=== PATIENT | female | born 1995 | race Caucasian/White ===

== ENCOUNTER 2017-04-17 19:20 | Emergency (ER) | payer BC, MEDICAID ==
--- NOTE | 2017-04-17 20:20 | EDM.PDOC ---
ED HPI GENERAL MEDICAL PROBLEM - General Chief Complaint: ENT Problem Stated Complaint: Earache Time Seen by Provider: 04/17/17 19:21 Source of Information: Reports: Patient, RN, RN Notes Reviewed History Limitations: Reports: No Limitations - History of Present Illness INITIAL COMMENTS - FREE TEXT/NARRATIVE: Patient presents to the emergency room at [facility] complaining of a right ear ache that has been occurring for the past 2-3 months. The patient has not had this checked out at all. The patient denies any other upper respiratory symptoms. The patient denies any global headache. The patient denies any ataxia or balance problems. The patient denies any nausea or vomiting. No close family members or contacts with similar symptoms. Onset: Gradual Duration: Waxing/Waning - Related Data Allergies Allergy/AdvReac Type Severity Reaction Status Date / Time No Known Drug Allergies Allergy Other Verified 07/16/14 21:50 Home Meds: Home Meds medroxyPROGESTERone [Depo-Provera Contraceptive] 07/13/14 [History] Amoxicillin 875 mg PO BID #20 tab 04/17/17 [Rx] Past Medical History - Past Health History Medical/Surgical History: Denies Medical/Surgical History Social & Family History - Tobacco Use Years of Tobacco use: 4 - Alcohol Use Days Per Week of Alcohol Use: 0 - Recreational Drug Use Recreational Drug Use: No ED ROS ENT - Review of Systems Review Of Systems: See Below Constitutional: Denies: Fever, Chills, Weakness HEENT: Reports: Ear Pain (right) Respiratory: Denies: Shortness of Breath, Cough Cardiovascular: Denies: Chest Pain, Palpitations Skin: Reports: No Symptoms Neurological: Reports: No Symptoms ED EXAM, ENT - Physical Exam Exam: See Below Exam Limited By: No Limitations General Appearance: Alert, No Apparent Distress Eye Exam: Bilateral Eye: EOMI, Normal Inspection, PERRL Ears: Canal Swelling, TM Bulging, TM Fluid Nose: Normal Inspection, Normal Mucousa, Clear Rhinorrhea Mouth/Throat: Normal Inspection, Normal Oropharynx Neck: Supple Respiratory/Chest: No Respiratory Distress, Lungs Clear, Normal Breath Sounds Cardiovascular: Regular Rate, Rhythm Neurological: Alert, Oriented Skin: Warm, Dry, Intact, Normal Color, No Rash Departure - Departure Time of Disposition: 20:31 Disposition: Home, Self-Care 01 Condition: good Clinical Impression: Otitis media Qualifiers: Otitis media type: suppurative Laterality: right Chronicity: acute Recurrence: recurrent Spontaneous tympanic membrane rupture: without spontaneous rupture Qualified Code(s): H66.004 - Acute suppurative otitis media without spontaneous rupture of ear drum, recurrent, right ear - Discharge Information Prescriptions: Amoxicillin 875 mg PO BID #20 tab Instructions: Otitis Media, Adult, [id number] Forms: ED Department Discharge - Problem List Review Problem List Initiated/Reviewed/Updated: Yes
[2017-04-18 01:48] VITALS: BP 126/73
== END 2017-04-17 20:33 | disposition home or self-care (01) ==
LOC: VM.ED 19:20
DX: H66.004 Acute suppurative otitis media without spontaneous rupture of ear drum, recurrent, right ear (principal); Z79.899 Other long term (current) drug therapy
CPT/HCPCS: 99282

== ENCOUNTER 2017-05-14 22:49 | Emergency (ER) | payer MEDICAID ==
[2017-05-14 22:59] VITALS: BP 122/73
--- NOTE | 2017-05-14 23:07 | EDM.PDOC ---
ED HPI GENERAL MEDICAL PROBLEM - General Chief Complaint: ENT Problem Stated Complaint: right ear pain Time Seen by Provider: 05/14/17 22:55 Source of Information: Reports: Patient, RN History Limitations: Reports: No Limitations - History of Present Illness INITIAL COMMENTS - FREE TEXT/NARRATIVE: Patient presents to the ED at [facility] complaining of right ear pain that started yesterday. Patient denies any URI symptoms. No recent swimming. No ear trauma or injury. No hearing problems. Patient has not tried any OTC medications. No other complaints. Onset Date: 05/13/17 Duration: Constant Quality: Reports: Throbbing Severity: Moderate - Related Data Allergies Allergy/AdvReac Type Severity Reaction Status Date / Time No Known Drug Allergies Allergy Other Verified 04/18/17 01:48 Home Meds: Home Meds Ciprofloxacin/Dexamethasone [Ciprodex Otic Susp] 3 drop EARRT TID #1 bottle [Rx] Past Medical History - Past Health History Medical/Surgical History: Denies Medical/Surgical History Social & Family History - Tobacco Use Years of Tobacco use: 4 - Alcohol Use Days Per Week of Alcohol Use: 0 - Recreational Drug Use Recreational Drug Use: No ED ROS ENT - Review of Systems Review Of Systems: See Below Constitutional: Denies: Fever, Chills, Weakness HEENT: Reports: Ear Pain. Denies: Eye Discharge, Rhinitis, Sinus Problem, Throat Pain Respiratory: Denies: Shortness of Breath, Cough Cardiovascular: Denies: Chest Pain, Palpitations Skin: Reports: No Symptoms Neurological: Reports: Headache. Denies: Dizziness ED EXAM, ENT - Physical Exam Exam: See Below Exam Limited By: No Limitations General Appearance: Alert, No Apparent Distress Eye Exam: Bilateral Eye: EOMI, Normal Inspection, PERRL Ears: Canal Material, Canal Swelling. No: Normal TMs (Bilateral), Canal Foreign Body Nose: Normal Inspection, Normal Mucousa Mouth/Throat: Normal Inspection, Normal Oropharynx Neck: Supple Respiratory/Chest: No Respiratory Distress, Lungs Clear, Normal Breath Sounds Cardiovascular: Regular Rate, Rhythm Neurological: Alert, Oriented Skin: Warm, Dry, Intact, Normal Color, No Rash Course - Vital Signs Last Recorded V/S: Last Vital Signs Temp 36.4 C 05/14/17 22:57 Pulse 104 H 05/14/17 22:57 Resp 18 06/27/17 22:57 BP 122/73 05/14/17 22:57 Pulse Ox 96 05/14/17 22:57 Departure - Departure Time of Disposition: 23:03 Disposition: Home, Self-Care 01 Condition: Good Clinical Impression: Otitis externa Qualifiers: Otitis externa type: diffuse Chronicity: acute Laterality: right Qualified Code (s): H60.311 - Diffuse otitis externa, right ear - Discharge Information Prescriptions: Ciprofloxacin/Dexamethasone [Ciprodex Otic Susp] 3 drop EARRT TID #1 bottle Instructions: Otitis Externa Forms: ED Department Discharge Additional Instructions: 1. Stay well hydrated and rest 2. Use drops for the full coarse, even if you are feeling better 3. Do not use any Q-tips or other foreign objects in either ear 4. May alternate Tylenol/Advil as needed for pain 5. Avoid getting any water, soap, etc., in either ear 6. See your Primary as symptoms warrant, you may need further testing - Problem List Review Problem List Initiated/Reviewed/Updated: Yes
== END 2017-05-14 23:16 | disposition home or self-care (01) ==
LOC: VM.ED 22:49
DX: H60.311 Diffuse otitis externa, right ear (principal)
CPT/HCPCS: 99282

== ENCOUNTER 2018-02-01 14:42 | Emergency (ER) | payer MEDICAID ==
--- NOTE | 2018-02-01 15:07 | EDM.PDOC ---
ED HPI GENERAL MEDICAL PROBLEM - General Chief Complaint: General Stated Complaint: LUMP IN RIGHT BREAST Time Seen by Provider: 02/01/18 14:43 Source of Information: Reports: Patient, Family, RN, RN Notes Reviewed History Limitations: Reports: No Limitations - History of Present Illness INITIAL COMMENTS - FREE TEXT/NARRATIVE: Patient presents the emergency room at [facility] complaining of a long in her right breast. The patient states that she noticed a lump about a week ago the patient states that the lump has progressively gotten more painful over the last week. The patient is concerned because a paternal grandmother was recently diagnosed with breast cancer. The patient denies any skin changes. No dimpling. The patient denies any nipple discharge. The patient denies any skin integrity issues. The patient has not had any fevers or chills. No back pain. The patient has never been nor has had delivered any children. Onset Date: 01/25/18 Duration: Getting Worse, Waxing/Waning Right Breast Pain Score (Numeric/FACES): 6 - Related Data Allergies Allergy/AdvReac Type Severity Reaction Status Date / Time No Known Drug Allergies Allergy Other Verified 04/18/17 01:48 Home Meds: Home Meds Ciprofloxacin/Dexamethasone [Ciprodex Otic Susp] 3 drop EARRT TID #1 bottle [Rx] Past Medical History - Past Health History Medical/Surgical History: Denies Medical/Surgical History Social & Family History - Tobacco Use Smoking Status *Q: Unknown Ever Smoked Years of Tobacco use: 4 - Alcohol Use Days Per Week of Alcohol Use: 0 - Recreational Drug Use Recreational Drug Use: No ED ROS GENERAL - Review of Systems Review Of Systems: See Below Constitutional: Denies: Fever, Chills, Weakness Respiratory: Denies: Shortness of Breath, Cough Cardiovascular: Denies: Chest Pain, Palpitations GI/Abdominal: Denies: Abdominal Pain, Nausea, Vomiting Skin: Reports: Lumps (Right Lateral breast) Neurological: Reports: No Symptoms ED EXAM, GENERAL - Physical Exam Exam: See Below Exam Limited By: No Limitations General Appearance: Alert, No Apparent Distress Respiratory/Chest: No Respiratory Distress, Lungs Clear, Normal Breath Sounds Cardiovascular: Normal Peripheral Pulses, Regular Rate, Rhythm GI/Abdominal: Normal Bowel Sounds, Soft, Non-Tender Skin Exam: Other (freely mobile not well demarcated irregular lump, right lateral breast; tender to palpation; skin intact, no retract, no nipple discharge; no evidence of infection) Course - Vital Signs Last Recorded V/S: Last Vital Signs Temp 36.6 C 02/01/18 14:45 Pulse 90 02/01/18 14:45 Resp 12 02/01/18 14:45 BP 136/79 02/01/18 14:45 Pulse Ox 97 02/01/18 14:45 Departure - Departure Time of Disposition: 15:09 Disposition: Home, Self-Care 01 Condition: Good Clinical Impression: Breast mass in female, Fibrocystic changes of right breast - Discharge Information Instructions: Fibrocystic Breast Changes Referrals: Caren Jiang MD [Physician] - Additional Instructions: 1. Stay well hydrated and rest 2. May use a heating pad to the area to help with discomfort 3. May alternate Tylenol/Advil as needed 4. Make an appointment with Dr. Caren Jiang at [facility] for a follow up 5. Call us with any questions, we care about your health! - Assessment/Plan Assessment:: Right Breast Mass Plan: Lalitha Andrews RN budget specialist and present during female breast exam. No suspicious findings on exam. Right lateral breast mass is tender; extends up toward the right axilla. Patient needs ultrasound vs Mammo for further assessment. Discussed with patient she needs to establish care with a PCP for further investigation of her symptoms. Patient agrees with POC. May use a heating pad and PRN Tylenol/Advil.
== END 2018-02-01 15:17 | disposition home or self-care (01) ==
LOC: VM.ED 14:42
DX: N60.11 Diffuse cystic mastopathy of right breast (principal)
CPT/HCPCS: 99282

== ENCOUNTER 2019-02-12 08:26 | Emergency (ER) | payer SELFPAY ==
--- NOTE | 2019-02-13 10:07 | EDM.PDOC ---
ED HPI GENERAL MEDICAL PROBLEM - General Chief Complaint: ENT Problem Stated Complaint: EAR PAIN Time Seen by Provider: 02/12/19 08:35 Source of Information: Reports: Patient History Limitations: Reports: No Limitations - History of Present Illness INITIAL COMMENTS - FREE TEXT/NARRATIVE: Pt. complains of pain to R ear and R sided dental pain. She states that she is scheduled to seen dental tomorrow. Denies any fever or chills. No chest pain or shortness of breath. No issues with swallowing or managing her secretions. Pt. states that she has been experiencing the discomfort for several days. She has a history of dental problems and is had a tooth that had broken off near the area of the pain. Location: Reports: Face Right Ear Pain Score (Numeric/FACES): 10 - Related Data Allergies Allergy/AdvReac Type Severity Reaction Status Date / Time No Known Drug Allergies Allergy Other Verified 02/12/19 08:38 Home Meds: Home Meds . [No Known Home Meds] 02/01/18 [History] Past Medical History - Past Health History Medical/Surgical History: Denies Medical/Surgical History Social & Family History - Tobacco Use Smoking Status *Q: Current Every Day Smoker Years of Tobacco use: 5 Packs/Tins Daily: 0.5 - Alcohol Use Days Per Week of Alcohol Use: 1 Number of Drinks Per Day: 3 Total Drinks Per Week: 3 - Recreational Drug Use Recreational Drug Use: No ED ROS GENERAL - Review of Systems Review Of Systems: See Below Constitutional: Reports: No Symptoms HEENT: Reports: Dental Pain Respiratory: Reports: No Symptoms Cardiovascular: Reports: No Symptoms GI/Abdominal: Reports: No Symptoms Skin: Reports: No Symptoms ED EXAM, GENERAL - Physical Exam Exam: See Below Exam Limited By: No Limitations General Appearance: Alert, WD/WN, No Apparent Distress Ears: Normal External Exam, Normal Canal, Hearing Grossly Normal, Normal TMs Ear Exam: Bilateral Ear: Auricle Normal, Canal Normal, TM normal Nose: Normal Inspection, Normal Mucosa, No Blood Throat/Mouth: Other (R lower premolar is fractured off at gumline. The tooth posterior to this appears to have a horizontal fracture through it.) Head: Atraumatic, Normocephalic Neck: Normal Inspection, Supple, Non-Tender, Full Range of Motion Respiratory/Chest: No Respiratory Distress, Lungs Clear, Normal Breath Sounds, No Accessory Muscle Use, Chest Non-Tender Cardiovascular: Normal Peripheral Pulses, Regular Rate, Rhythm, No Edema, No Gallop, No JVD, No Murmur, No Rub Course - Vital Signs Last Recorded V/S: Last Vital Signs Temp 36.9 C 02/12/19 08:26 Pulse 100 02/12/19 08:26 Resp 16 02/12/19 08:26 BP 126/70 02/12/19 08:26 Pulse Ox 98 02/12/19 08:26 Departure - Departure Time of Disposition: 09:00 Disposition: Home, Self-Care 01 Clinical Impression: Dental abscess - Discharge Information Instructions: Amoxicillin; Clavulanic Acid tablets, Naproxen and naproxen sodium oral immediate-release tablets, Probiotics Referrals: PCP,None [Primary Care Provider] - Forms: ED Department Discharge Additional Instructions: Augmentin 875mg twice daily for 10 days Naproxen 500mg twice daily as needed for pain Follow-up with dentist MARILEE. Make sure you finish all of the augmentin - Assessment/Plan Plan: Augmentin 875mg twice daily for 10 days Naproxen 500mg twice daily as needed for pain Follow-up with dentist MARILEE. Make sure you finish all of the augmentin
== END 2019-02-12 09:00 | disposition home or self-care (01) ==
LOC: VM.ED 08:26
DX: K04.7 Periapical abscess without sinus (principal); F17.210 Nicotine dependence, cigarettes, uncomplicated
CPT/HCPCS: 99282

== ENCOUNTER 2019-08-24 18:52 | Emergency (ER) | payer SELFPAY | END 2019-08-24 19:25 | disposition left against medical advice (07) | LOC: VM.ED 18:52 | DX: Z53.21 Procedure and treatment not carried out due to patient leaving prior to being seen by health care provider (principal) ==

== ENCOUNTER 2019-08-25 21:29 | Emergency (ER) | payer SELFPAY ==
--- NOTE | 2019-08-25 22:13 | EDM.PDOC ---
ED HPI GENERAL MEDICAL PROBLEM - General Chief Complaint: ENT Problem Stated Complaint: Dental and Jaw pain with swelling Time Seen by Provider: 08/25/19 22:00 Source of Information: Reports: Patient History Limitations: Reports: No Limitations - History of Present Illness INITIAL COMMENTS - FREE TEXT/NARRATIVE: 24-year-old white female presents to ER with ongoing dental abscess 2-3 days she says is getting worse in last 24 hours she could not see a dentist secondary to $ 200 co-pay she states it is a dull throbbing aching pain 10 out of 10 and constant although she is actually text messaging and playing on the phone all vital signs are normal. No acute distress She has no other complaints at this time been eating and drinking normal No fever no chills headache vision changes sinus pain or pressure no neck pain with movement no trouble eating or chewing or drinking fluids Duration: Day(s): Quality: Reports: Dull, Throbbing Worsens with: Reports: None Treatments COPY HOLDER: Reports: NSAIDS Right lower tooth, jaw Pain Score (Numeric/FACES): 10 - Related Data Allergies Allergy/AdvReac Type Severity Reaction Status Date / Time No Known Drug Allergies Allergy Other Verified 08/25/19 22:14 Home Meds: Home Meds . [No Known Home Meds] 02/01/18 [History] Past Medical History - Past Health History Medical/Surgical History: Denies Medical/Surgical History ED ROS ENT - Review of Systems Review Of Systems: See Below Constitutional: Denies: Fever, Chills, Weakness HEENT: Reports: Dental Pain. Denies: Ear Discharge, Ear Pain, Eye Pain, Nose Pain, Rhinitis, Sinus Problem, Throat Pain, Throat Swelling, Vision Change Respiratory: Reports: No Symptoms Cardiovascular: Reports: No Symptoms Endocrine: Reports: No Symptoms GI/Abdominal: Reports: No Symptoms Musculoskeletal: Reports: No Symptoms Neurological: Reports: No Symptoms. Denies: Headache, Numbness, Weakness, Change in Speech Psychiatric: Reports: No Symptoms Hematologic/Lymphatic: Reports: No Symptoms Immunologic: Reports: No Symptoms ED EXAM, ENT - Physical Exam Exam: See Below Exam Limited By: No Limitations General Appearance: Alert, WD/WN, No Apparent Distress Eye Exam: Bilateral Eye: EOMI, PERRL Ears: Normal External Exam, Normal Canal, Hearing Grossly Normal, Normal TMs Nose: Normal Inspection, Normal Mucousa, No Blood Mouth/Throat: Normal Inspection, Normal Gums, Normal Lips, Normal Oropharynx, Normal Teeth, Dental Abcess, Other (Noted visible abscess in the buchal fold at #29 patient has normal speech andUvula the tongue is soft as well as the soft palate no signs of Ru angina or peritonsillar abscess) Head: Atraumatic, Normocephalic Neck: Normal Inspection, Supple, Non-Tender, Full Range of Motion, Other (No nuchal rigidity). No: Limited Range of Motion, Lymphadenopathy (L), Lymphadenopathy (R) Respiratory/Chest: No Respiratory Distress Extremities: Normal Inspection, Normal Range of Motion Neurological: Alert, Oriented, CN II-XII Intact, Normal Cognition, Normal Gait Psychiatric: Normal Affect, Normal Mood Skin: Warm, Dry, Intact, Normal Color Lymphatic: No Adenopathy Course - Vital Signs Last Recorded V/S: Last Vital Signs Temp 37.2 C 08/25/19 21:30 Pulse 108 H 08/25/19 21:30 Resp 16 08/25/19 21:30 BP 117/57 L 08/25/19 21:30 Pulse Ox Patient will be given 900 mg of clindamycin IM and a prescription for clindamycin 300 mg 1 every 8 hours 10 days she is instructed to follow up with dentist as well as wash her mouth out with warm salt water as much as tolerated during the day she may take [id number] Tylenol Motrin as needed for pain follow directions on the bottle return to the emergency room for anything changes or gets worse - Orders/Labs/Meds Meds: Medications Discontinued Medications Generic Name Dose Route Start Last Admin Trade Name Kin PRN Reason Stop Dose Admin Clindamycin Phosphate 900 mg 08/25/19 22:05 08/25/19 22:20 Cleocin IM 08/25/19 22:06 900 mg STAT ONE Administration Departure - Departure Time of Disposition: 22:25 Disposition: Home, Self-Care 01 Condition: Good Clinical Impression: Dental abscess - Discharge Information *PRESCRIPTION DRUG MONITORING PROGRAM REVIEWED*: No *COPY OF PRESCRIPTION DRUG MONITORING REPORT IN PATIENT SACHI: No Instructions: Dental Abscess, [id number] Referrals: Caren Jiang MD [Primary Care Provider] - Forms: ED Department Discharge Additional Instructions: clindamycin 300 mg 1 every 8 hours 10 days instructed to follow up with dentist as well as wash her mouth out with warm salt water as much as tolerated during the day may take [id number] Tylenol ,Motrin as needed for pain follow directions on the bottle return to the emergency room for anything changes or gets worse - Problem List & Annotations (1) Dental abscess SNOMED Code(s): 815184496 Code(s): K04.7 - PERIAPICAL ABSCESS WITHOUT SINUS Status: Acute
[2019-08-25] MEDS: Clindamycin Phosphate 900 MG/6 ML SDV IM ONE (22:20)
== END 2019-08-25 22:40 | disposition home or self-care (01) ==
LOC: VM.ED 21:29
DX: K04.7 Periapical abscess without sinus (principal)
CPT/HCPCS: 96372; 99283; J3490

== ENCOUNTER 2019-11-22 08:09 | Emergency (ER) | payer MEDICAID ==
--- NOTE | 2019-11-22 09:24 | CR ---
[id number] RAD/RAD Chest PA And Lateral EXAM: RAD Chest PA And Lateral INDICATION: COUGH. COMPARISON: None. DISCUSSION: Cardiomediastinal silhouette is normal in size and contour. Possible developing left lower lobe pneumonia. Right lung is clear. IMPRESSION: Negative examination of the chest. Andrew Auguste MD 11/22/19 0922 Thank you for allowing us to participate in the care of your patient.
[2019-11-22] MEDS ORDERED: Oseltamivir 30 MG Cap ONE (09:30)
[2019-11-22] MEDS: Take Home: Oseltamivir 75 MG Cap, 2 Cap Pack PO ONE (09:40)
--- NOTE | 2019-11-22 12:38 | EDM.PDOC ---
ED HPI GENERAL MEDICAL PROBLEM - General Chief Complaint: General Stated Complaint: SOB;COUGH Time Seen by Provider: 11/22/19 08:15 Source of Information: Reports: Patient History Limitations: Reports: No Limitations - History of Present Illness INITIAL COMMENTS - FREE TEXT/NARRATIVE: Pt. presents to ER with complaints of fever, chills, cough, and chest congestion. She states that she started experiencing the symptoms on Tues or Weds. States that she has a sore throat and congestion. No nausea, vomiting, or diarrhea. No chest pain or shortness of breath. Pt. denies any rashes. Denies any lightheadedness or palpitations. Onset: Today Onset Date: 11/22/19 Location: Reports: Chest, Generalized Associated Symptoms: Reports: Cough, Fever/Chills Throat Pain Score (Numeric/FACES): 9 - Related Data Allergies Allergy/AdvReac Type Severity Reaction Status Date / Time No Known Drug Allergies Allergy Other Verified 11/22/19 08:34 Home Meds: Home Meds . [No Known Home Meds] 02/01/18 [History] Past Medical History - Past Health History Medical/Surgical History: Denies Medical/Surgical History HEENT History: Reports: Other (See Below) Other HEENT History: Hx of dental abscesses Social & Family History - Tobacco Use Smoking Status *Q: Current Every Day Smoker Years of Tobacco use: 10 Packs/Tins Daily: 0.5 - Recreational Drug Use Recreational Drug Use: Yes Drug Use in Last 12 Months: Yes Recreational Drug Type: Reports: Marijuana/Hashish Recreational Drug Use Frequency: Daily ED ROS GENERAL - Review of Systems Review Of Systems: See Below Constitutional: Reports: Fever, Chills, Fatigue HEENT: Reports: Rhinitis, Sinus Problem Respiratory: Reports: Cough Cardiovascular: Reports: No Symptoms Endocrine: Reports: No Symptoms GI/Abdominal: Reports: No Symptoms : Reports: No Symptoms Musculoskeletal: Reports: No Symptoms Skin: Reports: No Symptoms Neurological: Reports: No Symptoms Psychiatric: Reports: No Symptoms Hematologic/Lymphatic: Reports: No Symptoms Immunologic: Reports: No Symptoms ED EXAM, GENERAL - Physical Exam Exam: See Below Exam Limited By: No Limitations General Appearance: Alert, WD/WN, No Apparent Distress Eye Exam: Bilateral Eye: EOMI, Normal Fundi, Normal Inspection, PERRL Ears: Normal External Exam, Normal Canal, Hearing Grossly Normal, Normal TMs Ear Exam: Bilateral Ear: Auricle Normal, Canal Normal, TM normal Nose: Normal Inspection, Normal Mucosa, No Blood Throat/Mouth: Normal Lips, No Airway Compromise, Inflammation Head: Atraumatic, Normocephalic Neck: Normal Inspection, Supple, Non-Tender Respiratory/Chest: No Respiratory Distress, No Accessory Muscle Use, Crackles Cardiovascular: Normal Peripheral Pulses, Regular Rate, Rhythm, No Edema, No JVD , No Murmur, No Rub Peripheral Pulses: 4+: Radial (L) GI/Abdominal: Normal Bowel Sounds, Soft, Non-Tender, No Organomegaly, No Distention, No Abnormal Bruit, No Mass (Female) Exam: Deferred Rectal (Female) Exam: Deferred Back Exam: Normal Inspection, Full Range of Motion Extremities: Normal Inspection, Normal Range of Motion, Non-Tender, Normal Capillary Refill Neurological: Alert, Oriented, CN II-XII Intact, Normal Cognition, No Motor/ Sensory Deficits Psychiatric: Normal Affect, Normal Mood Skin Exam: Warm, Dry, Intact, Normal Color Course - Vital Signs Last Recorded V/S: Last Vital Signs Temp 36.9 C 11/22/19 08:15 Pulse 116 H 11/22/19 08:15 Resp 16 11/22/19 08:15 BP 108/72 11/22/19 08:15 Pulse Ox 96 11/22/19 08:15 - Orders/Labs/Meds Orders: Active Orders 24 hr Category Date Time Status CULTURE STREP A CONFIRMATION [RM] Stat Lab 11/22/19 08:15 Results STREP SCRN A RAPID W CULT CONF [RM] Stat Lab 11/22/19 08:15 Results Labs: Laboratory Tests 11/22/19 Range/Units 09:08 Urine HCG, Qual Positive H (NEGATIVE) Meds: Medications Discontinued Medications Generic Name Dose Route Start Last Admin Trade Name Freq PRN Reason Stop Dose Admin Oseltamivir Phosphate 1 packet 11/22/19 09:21 11/22/19 09:40 Take Home: Oseltamivir 75 Mg Cap, 2 Cap Pack PO 11/22/19 09:22 1 packet ONETIME ONE Administration - Radiology Interpretation Free Text/Narrative:: chest x-ray is negative Departure - Departure Time of Disposition: 09:00 Disposition: Home, Self-Care 01 Clinical Impression: Influenza, - Discharge Information Instructions: Influenza, Adult, [id number], Hemorrhoids, Fulx-du-Dlis, Oseltamivir capsules, Hydrocortisone rectal cream Referrals: Caren Jiang MD [Primary Care Provider] - Forms: ED Department Discharge Additional Instructions: Tamiflu 75mg 1 cap twice daily for 5 days total Tamiflu 30mg 1 cap twice daily for 5 days total Drink plenty of fluids Tylenol as needed for fever/discomfort No Ibuprofen, naproxen, or other NSAID medications due to Follow-up with Dr. Jiang this week regarding your . Sepsis Event Note - Evaluation Sepsis Screening Result: No Definite Risk - Focused Exam Vital Signs: Vital Signs Temp Pulse Resp BP Pulse Ox 11/22/19 08:15 36.9 C 116 H 16 108/72 96 Date Exam was Performed: 11/22/19 Time Exam was Performed: 12:32 - My Orders Last 24 Hours: My Active Orders 11/22/19 08:15 CULTURE STREP A CONFIRMATION [RM] Stat STREP SCRN A RAPID W CULT CONF [] Stat - Assessment/Plan Last 24 Hours: My Active Orders 11/22/19 08:15 CULTURE STREP A CONFIRMATION [RM] Stat STREP SCRN A RAPID W CULT CONF [] Stat Plan: Tamiflu 75mg 1 cap twice daily for 5 days total Tamiflu 30mg 1 cap twice daily for 5 days total Drink plenty of fluids Tylenol as needed for fever/discomfort No Ibuprofen, naproxen, or other NSAID medications due to Follow-up with Dr. Jiang this week regarding your .
== END 2019-11-22 09:46 | disposition home or self-care (01) ==
LOC: VM.ED 08:09
DX: O99.519 Diseases of the respiratory system complicating pregnancy, unspecified trimester (principal); J11.1 Influenza due to unidentified influenza virus with other respiratory manifestations; O99.330 Smoking (tobacco) complicating pregnancy, unspecified trimester; F17.210 Nicotine dependence, cigarettes, uncomplicated; Z3A.00 Weeks of gestation of pregnancy not specified
CPT/HCPCS: 71046; 81025; 87081; 87804; 87880; 99285; A9270

== ENCOUNTER 2020-06-18 14:18 | Emergency (ER) | payer MEDICAID ==
--- NOTE | 2020-06-18 14:37 | EDM.PDOC ---
ED HPI GENERAL MEDICAL PROBLEM - General Chief Complaint: General Stated Complaint: 36 WEEKS;HAVING CONTRACTIONS Time Seen by Provider: 06/18/20 14:25 Source of Information: Reports: Patient History Limitations: Reports: No Limitations - History of Present Illness INITIAL COMMENTS - FREE TEXT/NARRATIVE: Patient comes into the emergency department with complaints of contractions. Patient is 36 weeks Gravda 1 para 1. States her contractions started approximately 1 hour ago and they have been inconsistent lasting 1-2 mins on average approximately 8 to 10 minutes apart. Patient denies having any loss of fluid or/spotting. States that she has been able to feel the baby move a min of 10 times in a minute without any difficulty and has been following up regularly with her [facility] in [place]. Does state that she had sexual intercourse approximately 2 hours prior to arrival to the emergency department. Also states that she has been under added stress recently. She has not had any previous contractions prior today the past 1 hour. Patient denies any chest pain, shortness of breath, abnormal discharge, intense pain, peripheral edema, genitourinary concerns (frequency, burning, hesitancy- has had regular urine monitoring with OBGYN- no concerns), blurred vision, double vision, or COVID19 symptoms. heart tones 130's today in ER. Onset: Today Quality: Reports: Other Severity: Mild Improves with: Reports: None Worsens with: Reports: None Context: Reports: Activity Associated Symptoms: Reports: No Other Symptoms - Related Data Allergies Allergy/AdvReac Type Severity Reaction Status Date / Time No Known Drug Allergies Allergy Other Verified 06/18/20 16:29 Home Meds: Home Meds Vits #93/Iron Fum/FA [ Formula Tablet] 1 each PO DAILY 06/18/20 [History] Past Medical History - Past Health History Medical/Surgical History: Denies Medical/Surgical History HEENT History: Reports: Other (See Below) Other HEENT History: Hx of dental abscesses ED ROS GENERAL - Review of Systems Review Of Systems: Comprehensive ROS is negative, except as noted in HPI. Constitutional: Reports: No Symptoms HEENT: Reports: No Symptoms Respiratory: Reports: No Symptoms Cardiovascular: Reports: No Symptoms Endocrine: Reports: No Symptoms GI/Abdominal: Reports: No Symptoms : Reports: No Symptoms Musculoskeletal: Reports: No Symptoms Skin: Reports: No Symptoms Neurological: Reports: No Symptoms Psychiatric: Reports: No Symptoms Hematologic/Lymphatic: Reports: No Symptoms Immunologic: Reports: No Symptoms ED EXAM, GENERAL - Physical Exam Exam: See Below Exam Limited By: No Limitations General Appearance: Alert, WD/WN, No Apparent Distress Ears: Normal External Exam, Normal Canal, Hearing Grossly Normal, Normal TMs Ear Exam: Bilateral Ear: Auricle Normal, Canal Normal, TM normal Nose: Normal Inspection, Normal Mucosa, No Blood Throat/Mouth: Normal Inspection, Normal Lips, Normal Teeth, Normal Gums, Normal Oropharynx, Normal Voice, No Airway Compromise Head: Atraumatic, Normocephalic Neck: Normal Inspection, Supple, Non-Tender, Full Range of Motion Respiratory/Chest: No Respiratory Distress, Lungs Clear, Normal Breath Sounds, No Accessory Muscle Use, Chest Non-Tender Cardiovascular: Normal Peripheral Pulses, Regular Rate, Rhythm, No Edema, No Gallop, No JVD, No Murmur, No Rub GI/Abdominal: Normal Bowel Sounds, Other (measuring 35 weeks ) Back Exam: Normal Inspection, Full Range of Motion, NT Extremities: Normal Inspection, Normal Range of Motion, Non-Tender, Normal Capillary Refill, No Pedal Edema Neurological: Alert, Oriented, CN II-XII Intact, Normal Cognition, Normal Gait, Normal Reflexes, No Motor/Sensory Deficits Psychiatric: Normal Affect, Normal Mood Skin Exam: Warm, Dry, Intact, Normal Color, No Rash Lymphatic: No Adenopathy Course - Vital Signs Last Recorded V/S: Last Vital Signs Temp 36.8 C 06/18/20 14:25 Pulse 97 06/18/20 14:25 Resp 16 06/18/20 14:25 BP 136/86 06/18/20 14:25 Pulse Ox 99 06/18/20 14:25 Departure - Departure Time of Disposition: 14:50 Disposition: Home, Self-Care 01 Condition: Good Clinical Impression: Harlan Pizano' contraction - Discharge Information *PRESCRIPTION DRUG MONITORING PROGRAM REVIEWED*: Not Applicable *COPY OF PRESCRIPTION DRUG MONITORING REPORT IN PATIENT SACHI: Not Applicable Instructions: Harlan Pizano Contractions Referrals: Caren Jiang MD [Primary Care Provider] - Forms: ED Department Discharge Additional Instructions: 1. Take a warm back to relieve the muscle tension and reduce pain 2. Sessions every 30 minutes. Take breaks and sit down and put feet up 3. Water and ensure urine is light yellow or clear 4. Short walks to help feel better 5. Call [facility] with any questions or concerns or if contractions continue. They will advise with the next step 6. Patient and nursing staff was updated regarding the plan of care 7. Education provided the patient regarding activity, diet, rest, ove [id number] medication modalities, and follow-up care was provided 8. Patient and family are agreeable to the above plan of care 9. All questions and concerns were addressed with the patient and family prior to discharge Sepsis Event Note (ED) - Focused Exam Vital Signs: Vital Signs Temp Pulse Resp BP Pulse Ox 06/18/20 14:25 36.8 C 97 16 136/86 99 - Assessment/Plan Assessment:: 1. Harlan Pizano contractions Plan: 1. Check heart tones- 130's. 2. Count baby movements 13 within a few mins 3. Monitor for contractions. 30 mins- no further contractions 4. No leaking, discharge, or bleeding- no further vaginal exam indicated at this time 5. Patient and nursing staff was updated regarding the plan of care 6. Education provided the patient regarding activity, diet, rest, [id number] medication modalities, and follow-up care was provided 7. Patient and family are agreeable to the above plan of care 8. All questions and concerns were addressed with the patient and family prior to discharge
== END 2020-06-18 14:45 | disposition home or self-care (01) ==
LOC: VM.ED 14:18
DX: O47.03 False labor before 37 completed weeks of gestation, third trimester (principal); Z3A.36 36 weeks gestation of pregnancy
CPT/HCPCS: 99283; 99283-GF

== ENCOUNTER 2022-07-08 12:02 | Emergency (ER) | payer MEDICAID ==
[2022-07-08] MEDS ORDERED: Take Home: Amoxicillin/Clavulanate K 875-125 MG Tab, 2 Tab Pack PO ONE (12:27)
== END 2022-07-08 12:38 | disposition home or self-care (01) ==
LOC: VM.ED 12:02
DX: J03.90 Acute tonsillitis, unspecified (principal); Z79.899 Other long term (current) drug therapy; Z72.0 Tobacco use
CPT/HCPCS: 99282; 99283; A9270-GY